=== PATIENT | male | born 1945 | race Caucasian/White ===

== ENCOUNTER 2019-12-27 20:21 | Emergency (ER) | payer OTHER ==
[~2019-12-27] VITALS: Ht 177.8 cm; Wt 93.0 kg
--- NOTE | 2019-12-27 20:30 | NUR ---
PT TAKEN TO BED 3
[2019-12-27 20:31] VITALS: BP 141/71
--- NOTE | 2019-12-27 20:35 | NUR ---
PT 74 Y/O MALE BIB SELF FOR C/O ABRASION ON BIG TOE WITH 2/10 PAIN X 3 DAYS. PT STATES," I GOT NEW DIABETIC SHOES AND THEY KEEP RUBBING MY FOOT. NOW I HAVE OPEN SKIN." PT TOE NOTED WITH 1CM X 1CM OPEN SKIN. REDNESS, AND EDEMA NOTED AROUND SITE. CMS + AND CAP REFILL <3. PT STATES HE HAS BEEN CLEANING THE ABRASION AT HOME WITH WATER. PT VVS. DENIES COUGH. DENIES N/V/D. PT SITTING UPRIGHT IN BED. BED LOCKED AND IN LOWEST POSTION. MED HX: DM TYPE II ALLERGIES: NONE
--- NOTE | 2019-12-27 20:55 | NUR ---
Dr. Miguel examining patient.
[2019-12-27 21:23] VITALS: BP 141/71
--- NOTE | 2019-12-27 21:23 | NUR ---
Patient discharged with v/s stable. Written and verbal after care instructions given and explained. Patient alert, oriented and verbalized understanding of instructions. Ambulatory with steady gait. All questions addressed prior to discharge. ID band removed. Patient advised to follow up with PMD. Rx of KEFLEX, MOTRIN given. Patient educated on indication of medication including possible reaction and side effects. Opportunity to ask questions provided and answered.
== END 2019-12-27 21:23 | disposition home or self-care (01) ==
LOC: MED 20:21
DX: L03.031 Cellulitis of right toe (principal); E11.9 Type 2 diabetes mellitus without complications; I10 Essential (primary) hypertension
CPT/HCPCS: 99283

== ENCOUNTER 2020-06-05 08:39 | Emergency (ER) | payer OTHER ==
[~2020-06-05] VITALS: Ht 177.8 cm; Wt 81.6 kg
[2020-06-05 08:54] VITALS: BP 144/71
--- NOTE | 2020-06-05 09:04 | NUR ---
PT AMB TO [facility]
--- NOTE | 2020-06-05 09:16 | NUR ---
C/O GENERALIZED ITCHING S/P SMALL BUG BITE X YESTERDAY.MED HX: DM, HTN, ECZEMA. PATIENT STATES PAIN OF 0/10 AT THIS TIME.
[2020-06-05 09:22] VITALS: BP 144/71
== END 2020-06-05 09:21 | disposition home or self-care (01) ==
LOC: MED 08:39
DX: R21 Rash and other nonspecific skin eruption (principal); E11.9 Type 2 diabetes mellitus without complications; I10 Essential (primary) hypertension; Z98.890 Other specified postprocedural states
CPT/HCPCS: 99283